=== PATIENT | male | born 1980 | race Caucasian/White ===

== ENCOUNTER 2017-12-14 08:19 | Emergency (ER) | payer SELFPAY ==
[~2017-12-14] VITALS: Ht 175.3 cm; Wt 78.0 kg
[2017-12-14] MEDS ORDERED: IBUPROFEN 600MG TABLET PO ONE (09:00)
[2017-12-14 09:16] VITALS: BP 124/70
== END 2017-12-14 10:05 | disposition home or self-care (01) ==
LOC: ER 09:00
DX: S09.8XXA Other specified injuries of head, initial encounter (principal); X79.XXXA Intentional self-harm by blunt object, initial encounter; Y93.89 Activity, other specified; Y92.810 Car as the place of occurrence of the external cause; Z65.3 Problems related to other legal circumstances; G40.909 Epilepsy, unspecified, not intractable, without status epilepticus
CPT/HCPCS: 70450; 99284

== ENCOUNTER 2017-12-14 10:57 | Emergency (ER) | payer SELFPAY ==
[~2017-12-14] VITALS: Ht 172.7 cm; Wt 75.0 kg
[2017-12-14] MEDS ORDERED: LORAZEPAM 2MG/ML CPJ IM STA (11:06)
[2017-12-14] MEDS ORDERED: HALOPERIDOL LACTATE 5MG/ML VIAL IM STA (11:06)
[2017-12-14 11:30] VITALS: BP 120/79
[2017-12-14 11:39] LABS: BASOPHILS % 0.5 % (0.0-2.0); EOSINOPHILS % 1.3 % (0.0-5.0); HEMATOCRIT. 40.3 % (42.0-52.0); HEMOGLOBIN. 13.9 g/dL (14.0-18.0); LYMPHOCYTES % 22.4 % (20.0-50.0); MEAN CORPUSCULAR HEMOGLOBIN 30.6 pg (28.0-32.0); MEAN CORPUSCULAR VOLUME 88.7 fL (80.0-94.0); MEAN PLATELET VOLUME 7.5 fl (7.4-10.4); MONOCYTES % 7.9 % (2.0-8.0); NEUTROPHILS % 67.9 % (40.0-76.0); PLATELET 299 x1000/uL (130-400); RED BLOOD CELL COUNT 4.54 mill/uL (4.7-6.1); RED CELL DISTRIBUTION WIDTH 13.1 % (11.6-14.6)
[2017-12-14 11:47] LABS: CHLORIDE 107 mEq/L (98-107)
[2017-12-14 11:54] LABS: ETHANOL BLOOD < 10 mg/dL
== END 2017-12-14 12:15 | disposition home or self-care (01) ==
LOC: ER 11:58
DX: S09.8XXA Other specified injuries of head, initial encounter (principal); R51 Headache; X79.XXXA Intentional self-harm by blunt object, initial encounter; Y93.89 Activity, other specified; Y92.143 Cell of prison as the place of occurrence of the external cause; G40.909 Epilepsy, unspecified, not intractable, without status epilepticus
CPT/HCPCS: 36415; 80053; 80307; 80329; 85025; 99284; G0482; J1630; J2060

== ENCOUNTER 2019-05-30 11:14 | Emergency (ER) | payer MEDICAID ==
[~2019-05-30] VITALS: Ht 177.8 cm; Wt 75.0 kg
[2019-05-30] MEDS ORDERED: SODIUM CHLORIDE 0.9% 1,000 ML IV ONE (12:54)
[2019-05-30] MEDS: LEVETIRACETAM 500MG PREMIX 100 ML IV ONE ×5 (13:43→14:06)
[2019-05-30] MEDS ORDERED: LORAZEPAM 2MG/ML CPJ IV ONE (13:45)
[2019-05-30 13:51] VITALS: BP 121/87
[2019-05-30] MEDS ORDERED: LEVETIRACETAM 500MG TABLET PO ONE (14:15)
[2019-05-30 15:45] LABS: BASOPHILS % 0.9 % (0.0-2.0); HEMATOCRIT. 45.3 % (42.0-52.0); HEMOGLOBIN. 15.7 g/dL (14.0-18.0); LYMPHOCYTES % 16.3 % (20.0-50.0); MEAN CORPUSCULAR HEMOGLOBIN 30.8 pg (28.0-32.0); MEAN CORPUSCULAR VOLUME 88.9 fL (80.0-94.0); MEAN PLATELET VOLUME 9.2 fl (7.4-10.4); MONOCYTES % 11.8 % (2.0-8.0); PLATELET 303 x1000/uL (130-400); RED BLOOD CELL COUNT 5.09 mill/uL (4.7-6.1)
[2019-05-30 15:51] LABS: CHLORIDE 102 mEq/L (98-107)
[2019-05-30 16:00] LABS: ETHANOL BLOOD < 10 mg/dL
[2019-05-30 16:10] LABS: CLARITY URINE CLEAR (CLEAR); COLOR URINE YELLOW (YELLOW); KETONES URINE NEGATIVE (NEGATIVE); LEUKOCYTE ESTERASE URINE NEGATIVE (NEGATIVE); NITRITE URINE NEGATIVE (NEGATIVE); OCCULT BLOOD URINE NEGATIVE (NEGATIVE); PH URINE 5.5 (4.5-8.0); PROTEIN URINE NEGATIVE (NEGATIVE); SPECIFIC GRAVITY URINE 1.008 (1.005-1.030)
[2019-05-30 16:29] LABS: *AMPHETAMINES SCREEN URINE PRESUMTIVE POSITIVE (NEGATIVE); *BENZODIAZEPINES SCREEN URINE NEGATIVE (NEGATIVE); CANNABINOID URINE SCREEN NEGATIVE (NEGATIVE); METHADONE URINE SCREEN NEGATIVE (NEGATIVE); OPIATES URINE SCREEN NEGATIVE (NEGATIVE); PHENCYCLIDINE URINE SCREEN NEGATIVE (NEGATIVE)
[2019-05-30 16:30] LABS: *COCAINE SCREEN URINE NEGATIVE (NEGATIVE)
[2019-05-30 16:31] LABS: *BARBITURATES SCREEN URINE NEGATIVE (NEGATIVE)
== END 2019-05-30 14:31 | disposition left against medical advice (07) ==
LOC: ER 11:14
DX: G40.909 Epilepsy, unspecified, not intractable, without status epilepticus (principal); F15.10 Other stimulant abuse, uncomplicated; R03.0 Elevated blood-pressure reading, without diagnosis of hypertension; F31.9 Bipolar disorder, unspecified
CPT/HCPCS: 36415; 80053; 80305; 80320; 81003; 82962; 85025; 96374; 99283; J1953; J2060; J7030; G0480